=== PATIENT | male | born 1960 | race Caucasian/White ===

== ENCOUNTER 2022-12-17 15:28 | Inpatient (IN) | payer BC ==
[~2022-12-17] VITALS: Ht 193 cm; Wt 107.1 kg
[2022-12-17 15:58] LABS: BASOPHILS # (AUTO) 0.03 K/uL (0.00-0.20); BASOPHILS % (AUTO) 0.3 % (0.0-5.0); EOSINOPHILS # (AUTO) 0.06 K/uL (0.00-0.70); EOSINOPHILS % (AUTO) 0.5 % (0.0-8.0); HEMATOCRIT 32.8 % (42-54); IMMATURE GRANULOCYTE ABSOLUTE 0.06 K/uL (0-1); LYMPHOCYTES # (AUTO) 1.9 K/uL (1.0-4.8); LYMPHOCYTES % (AUTO) 15.9 % (21.0-51.0); MEAN CORPUSCULAR HEMOGLOBIN 26.5 pg (27.0-33.0); MEAN CORPUSCULAR HGB CONC 32.9 g/dL (32.0-36.0); MEAN CORPUSCULAR VOLUME 80.4 fL (79-99); MONOCYTES # (AUTO) 1.1 K/uL (0.1-1.0); MONOCYTES % (AUTO) 9.4 % (3.0-13.0); NEUTROPHILS # (AUTO) 8.8 K/uL (1.8-7.7); NEUTROPHILS % (AUTO) 73.4 % (40.0-77.0); PLATELET COUNT (AUTO) 262 K/uL (130-400); RED BLOOD CELL COUNT(AUTO) 4.08 MIL/uL (4.50-6.20); RED CELL DISTRIBUTION WIDTH 18.8 % (11.0-15.5); WHITE BLOOD COUNT (AUTO) 11.9 K/uL (4.8-10.8)
[2022-12-17 16:12] LABS: ALBUMIN 2.8 g/dL (3.5-5.0); CREATININE 0.7 mg/dL (0.5-1.5)
[2022-12-17 16:24] LABS: BILIRUBIN,TOTAL 0.3 mg/dL (0.2-1.0); TOTAL PROTEIN, SERUM 7.6 g/dL (6.0-8.3)
[2022-12-17 16:26] LABS: POTASSIUM 2.5 mmol/L (3.5-5.1)
[2022-12-17] MEDS ORDERED: ONDANSETRON 4MG INJ IVP ONE (16:30)
[2022-12-17] MEDS ORDERED: MORPHINE 4 MG SYG IVP ONE (16:30)
[2022-12-17] MEDS ORDERED: IOHEXOL-350 75 ML VIAL IV ONE (16:45)
[2022-12-17] MEDS ORDERED: LACTATED RINGERS 1000ML 1,000 ML IV ONE (17:00)
[2022-12-17] MEDS ORDERED: POTASSIUM BICARB/CIT AC 25 MEQ TABLET.EFF PO ONE (17:00)
[2022-12-17] MEDS ORDERED: FAMOTIDINE 20MG VIAL IV ONE (17:30)
[2022-12-17] MEDS ORDERED: KETOROLAC 30MG VIAL (30MG/ML) IVP ONE (17:30)
[2022-12-17] MEDS ORDERED: METOCLOPRAMIDE 10 MG/2 ML VIAL IVP ONE (17:30)
[2022-12-17] MEDS ORDERED: ACETAMINOPHEN 325 MG TAB PO PRN ×2 (18:30)
[2022-12-17] MEDS: LACTATED RINGERS 1000ML 1,000 ML IV SCH ×2 (18:51→20:49)
[2022-12-17] MEDS ORDERED: ZOSYN 3.375GM+NS 50ML 50 ML IVPB ONE (19:22)
[2022-12-17] MEDS ORDERED: POTASSIUM CHLORIDE 20MEQ/100ML 100 ML IV PRN (20:30)
[2022-12-17] MEDS ORDERED: MAGNESIUM 2GM PREMIX 50ML 50 ML IV PRN (20:30)
[2022-12-17] MEDS: ZOSYN 3.375GM+NS 50ML 50 ML IVPB SCH (20:49)
[2022-12-17] MEDS: ONDANSETRON 4MG INJ IV PRN (20:51)
[2022-12-17] MEDS: MORPHINE 4 MG SYG IV PRN (20:52)
[2022-12-17 22:08] VITALS: BP 134/82; PULSE 86; RESP 18
[2022-12-17 22:15] VITALS: BP 139/77; PULSE 92; RESP 18
[2022-12-17 22:51] VITALS: O2SAT 98
[2022-12-17] MEDS: MORPHINE 2 MG SYG IV PRN (23:18)
[2022-12-18] VITALS (31 sets, daily range): BP systolic 104–156; BP diastolic 47–89; PULSE 69–105; RESP 11–22; O2SAT 98–99
[2022-12-18] MEDS: MORPHINE 4 MG SYG IV PRN ×2 (01:47→06:19)
[2022-12-18 04:08] LABS: BASOPHILS # (AUTO) 0.04 K/uL (0.00-0.20); BASOPHILS % (AUTO) 0.4 % (0.0-5.0); EOSINOPHILS # (AUTO) 0.12 K/uL (0.00-0.70); EOSINOPHILS % (AUTO) 1.3 % (0.0-8.0); IMMATURE GRANULOCYTE ABSOLUTE 0.05 K/uL (0-1); LYMPHOCYTES # (AUTO) 1.7 K/uL (1.0-4.8); LYMPHOCYTES % (AUTO) 18.5 % (21.0-51.0); MEAN CORPUSCULAR HEMOGLOBIN 26.4 pg (27.0-33.0); MEAN CORPUSCULAR VOLUME 85.2 fL (79-99); MONOCYTES # (AUTO) 1.5 K/uL (0.1-1.0); MONOCYTES % (AUTO) 15.7 % (3.0-13.0); NEUTROPHILS # (AUTO) 5.9 K/uL (1.8-7.7); NEUTROPHILS % (AUTO) 63.6 % (40.0-77.0); PLATELET COUNT (AUTO) 232 K/uL (130-400); RED BLOOD CELL COUNT(AUTO) 3.52 MIL/uL (4.50-6.20); RED CELL DISTRIBUTION WIDTH 18.9 % (11.0-15.5); WHITE BLOOD COUNT (AUTO) 9.3 K/uL (4.8-10.8)
[2022-12-18 04:24] LABS: CREATININE 0.8 mg/dL (0.5-1.5); MAGNESIUM 2.2 mg/dL (1.80-2.40); PHOSPHORUS 3.3 mg/dL (2.5-4.9)
[2022-12-18] MEDS: ZOSYN 3.375GM+NS 50ML 50 ML IVPB SCH ×3 (04:31→21:44)
[2022-12-18] MEDS ORDERED: POTASSIUM CHLORIDE 20 MEQ/100 ML BAG IV SCH (08:00)
[2022-12-18 08:31] LABS: INR 0.94 (0.85-1.15); PROTHROMBIN TIME 10.9 SEC (9.6-11.6)
[2022-12-18] MEDS ORDERED: MORPHINE 2 MG SYG IVP ONE (09:00)
[2022-12-18] MEDS: NICOTINE 14 MG/ 24 HR PATCH TD SCH (09:02)
[2022-12-18] MEDS: FAMOTIDINE 20MG VIAL IV SCH (09:03)
[2022-12-18] MEDS ORDERED: BUPIVACAINE/PF 0.25% 30ML VIAL IJ ONE (10:06)
[2022-12-18] MEDS ORDERED: LIDOCAINE 1%-EPI 1:100,000 20 ML VIAL IJ ONE (10:07)
[2022-12-18] MEDS ORDERED: SUCCINYLCHOLINE CHLORIDE 20 MG/ML 10 ML VIAL ONE (10:20)
[2022-12-18] MEDS ORDERED: LIDOCAINE PF 100MG/5ML (2%) SYRINGE 5ML ONE (10:20)
[2022-12-18] MEDS ORDERED: DEXAMETHASONE SOD PHOSPHATE 10MG/ML 1ML VIAL ONE (10:20)
[2022-12-18] MEDS ORDERED: MIDAZOLAM HCL 1 MG/ML 2ML VIAL ONE ×2 (10:21→11:16)
[2022-12-18] MEDS ORDERED: NEOSTIGMINE 5MG/5ML SYR IV ONE (10:21)
[2022-12-18] MEDS ORDERED: GLYCOPYRROLATE 1 MG/5 ML SYRINGE ONE (10:21)
[2022-12-18] MEDS ORDERED: PROPOFOL 10 MG/ML 20ML VIAL IV ONE (10:21)
[2022-12-18] MEDS ORDERED: ROCURONIUM 10MG/1ML SYR 10 MG/ML ML ONE (10:21)
[2022-12-18] MEDS ORDERED: ONDANSETRON 4MG INJ ONE ×2 (10:21→12:03)
[2022-12-18] MEDS ORDERED: FENTANYL CITRATE PF 50 MCG/1 ML 2ML VIAL ONE (10:22)
[2022-12-18] MEDS ORDERED: FENTANYL CITRATE PF 50 MCG/1 ML 5ML AMP IV ONE (10:22)
[2022-12-18] MEDS ORDERED: CEFAZOLIN SODIUM 1 GM VIAL ONE (10:49)
[2022-12-18] MEDS ORDERED: MEPERIDINE-PF 25 MG/ML SYG ONE (11:21)
[2022-12-18] MEDS: LACTATED RINGERS 1000ML 1,000 ML IV SCH (11:23)
[2022-12-18] MEDS ORDERED: MEPERIDINE-PF 50 MG/ML SYG ONE (12:03)
[2022-12-18] MEDS ORDERED: ZOSYN 3.375GM+NS 50ML 50 ML IVPB ONE (12:45)
[2022-12-18] MEDS: MORPHINE 2 MG SYG IV PRN (14:19)
[2022-12-18] MEDS: HYDROMORPHONE 1 MG INJ IVP PRN ×2 (16:37→21:45)
[2022-12-18] MEDS: OXYCODONE/ACETAMIN 5/325MG TAB PO PRN ×2 (17:51→21:58)
[2022-12-19] VITALS (7 sets, daily range): BP systolic 102–129; BP diastolic 62–72; PULSE 89–103; RESP 18–20; O2SAT 98
[2022-12-19] MEDS: OXYCODONE/ACETAMIN 5/325MG TAB PO PRN ×3 (03:29→19:56)
[2022-12-19] MEDS: HYDROMORPHONE 1 MG INJ IVP PRN ×5 (03:30→22:33)
[2022-12-19 04:28] LABS: HEMATOCRIT 28.2 % (42-54); MEAN CORPUSCULAR HEMOGLOBIN 26.2 pg (27.0-33.0); MEAN CORPUSCULAR HGB CONC 30.5 g/dL (32.0-36.0); RED BLOOD CELL COUNT(AUTO) 3.28 MIL/uL (4.50-6.20); RED CELL DISTRIBUTION WIDTH 18.8 % (11.0-15.5); WHITE BLOOD COUNT (AUTO) 12.9 K/uL (4.8-10.8)
[2022-12-19 04:32] LABS: HEMOGLOBIN A1C 5.8 % (4.0-6.0)
[2022-12-19 04:52] LABS: ALBUMIN 2.6 g/dL (3.5-5.0); BILIRUBIN,TOTAL 0.5 mg/dL (0.2-1.0); CREATININE 0.9 mg/dL (0.5-1.5); MAGNESIUM 1.8 mg/dL (1.80-2.40); POTASSIUM 3.5 mmol/L (3.5-5.1); TOTAL PROTEIN, SERUM 6.6 g/dL (6.0-8.3)
[2022-12-19] MEDS: ZOSYN 3.375GM+NS 50ML 50 ML IVPB SCH ×3 (05:17→21:32)
[2022-12-19] MEDS: LACTATED RINGERS 1000ML 1,000 ML IV SCH (05:18)
[2022-12-19] MEDS: FAMOTIDINE 20MG VIAL IV SCH (08:38)
[2022-12-19] MEDS: NICOTINE 14 MG/ 24 HR PATCH TD SCH (08:40)
[2022-12-19] MEDS ORDERED: LISI2.5T13 PO (09:57)
[2022-12-19] MEDS ORDERED: APIX5TAB PO (09:57)
[2022-12-19] MEDS ORDERED: CARV12.511 PO (09:57)
[2022-12-19] MEDS ORDERED: PANT40TA54 PO (09:57)
[2022-12-19] MEDS ORDERED: FURO20TA4 PO (09:57)
[2022-12-19] MEDS ORDERED: GABA-529 PO (09:57)
[2022-12-19] MEDS ORDERED: ATOR40TA71 PO (09:57)
[2022-12-19] MEDS ORDERED: LEVE250T2 PO (09:57)
[2022-12-19] MEDS ORDERED: KCL 20 MEQ ERTAB PO ONE ×2 (11:30→16:30)
[2022-12-19] MEDS: FUROSEMIDE 20 MG TABLET PO SCH (12:49)
[2022-12-19] MEDS: ONDANSETRON 4MG INJ IV PRN (13:58)
[2022-12-19] MEDS ORDERED: LACTATED RINGERS 1000ML 1,000 ML IV SCH (19:00)
[2022-12-19] MEDS ORDERED: LACTULOSE 20 GM/30 ML UDCUP PO ONE (20:00)
[2022-12-19] MEDS ORDERED: LEVETIRACETAM 250 MG TABLET PO SCH (21:00)
[2022-12-19] MEDS ORDERED: TAMSULOSIN HCL 0.4 MG CAP.ER.24H PO SCH (21:00)
[2022-12-19] MEDS: PANTOPRAZOLE 40 MG TAB DR PO SCH (21:31)
[2022-12-19] MEDS: CARVEDILOL 12.5 MG TABLET PO SCH (21:32)
[2022-12-19] MEDS: GABAPENTIN 100 MG CAPSULE PO SCH (21:38)
[2022-12-20 00:31] VITALS: BP 106/72; PULSE 89; RESP 16
[2022-12-20 03:06] VITALS: BP 114/65; PULSE 80; RESP 16
[2022-12-20] MEDS ORDERED: LACTULOSE 20 GM/30 ML UDCUP ONE (03:09)
[2022-12-20] MEDS: HYDROMORPHONE 1 MG INJ IVP PRN (03:11)
[2022-12-20] MEDS ORDERED: KETOROLAC 30MG VIAL (30MG/ML) IVP PRN (03:30)
[2022-12-20] MEDS ORDERED: LACTULOSE 20 GM/30 ML UDCUP PO ONE (03:30)
[2022-12-20] MEDS: OXYCODONE/ACETAMIN 5/325MG TAB PO PRN ×2 (03:35→10:20)
[2022-12-20 04:27] LABS: HEMATOCRIT 28.6 % (42-54); MEAN CORPUSCULAR HEMOGLOBIN 26.2 pg (27.0-33.0); MEAN CORPUSCULAR HGB CONC 30.4 g/dL (32.0-36.0); MEAN CORPUSCULAR VOLUME 86.1 fL (79-99); RED BLOOD CELL COUNT(AUTO) 3.32 MIL/uL (4.50-6.20); RED CELL DISTRIBUTION WIDTH 18.9 % (11.0-15.5); WHITE BLOOD COUNT (AUTO) 14.9 K/uL (4.8-10.8)
[2022-12-20 04:42] LABS: ALBUMIN 2.7 g/dL (3.5-5.0); BILIRUBIN,TOTAL 0.4 mg/dL (0.2-1.0); CREATININE 0.9 mg/dL (0.5-1.5); MAGNESIUM 1.9 mg/dL (1.80-2.40); POTASSIUM 4.2 mmol/L (3.5-5.1); TOTAL PROTEIN, SERUM 7.1 g/dL (6.0-8.3)
[2022-12-20] MEDS: ZOSYN 3.375GM+NS 50ML 50 ML IVPB SCH (04:59)
[2022-12-20 07:37] VITALS: BP 122/67; PULSE 86; RESP 20
[2022-12-20 08:00] VITALS: O2SAT 99
[2022-12-20] MEDS ORDERED: LISINOPRIL 2.5 MG TABLET PO SCH (09:00)
[2022-12-20] MEDS ORDERED: FUROSEMIDE 20 MG TABLET PO SCH (09:00)
[2022-12-20] MEDS ORDERED: ATORVASTATIN 40 MG TABLET PO SCH (09:00)
[2022-12-20] MEDS: NICOTINE 14 MG/ 24 HR PATCH TD SCH (10:17)
[2022-12-20 10:23] VITALS: BP 122/67
[2022-12-20] MEDS: PANTOPRAZOLE 40 MG TAB DR PO SCH (10:23)
[2022-12-20] MEDS: CARVEDILOL 12.5 MG TABLET PO SCH (10:23)
[2022-12-20] MEDS: GABAPENTIN 100 MG CAPSULE PO SCH (10:24)
[2022-12-20] MEDS: FUROSEMIDE 20 MG TABLET PO SCH (10:24)
== END 2022-12-20 11:45 | disposition home or self-care (01) | DRG 343 ==
LOC: EDH 15:28 → EDHIP 18:22 → 2DH 21:14
PROVIDERS: ADMIT Internal Medicine; ATTEND Internal Medicine
PROC: 0DTJ4ZZ Resection of Appendix, Percutaneous Endoscopic Approach (ICD-10-PCS; principal; 2022-12-18 10:29)
DX: K35.890 Other acute appendicitis without perforation or gangrene (principal); F10.129 Alcohol abuse with intoxication, unspecified; I48.91 Unspecified atrial fibrillation; R73.9 Hyperglycemia, unspecified; E87.6 Hypokalemia; F17.200 Nicotine dependence, unspecified, uncomplicated; I10 Essential (primary) hypertension; Z95.2 Presence of prosthetic heart valve; Z90.49 Acquired absence of other specified parts of digestive tract; Z79.899 Other long term (current) drug therapy
CPT/HCPCS: 36415; 71045; 74178; 80048; 80053; 82550; 82948; 83036; 83690; 83735; 83874; 84100; 84132; 84484; 85025; 85027; 85610; 87040; 93005; G0378; J0330; J0690; J1100; J1170; J1885; J2001; J2175; J2250; J2270; J2405; J2543; J2704; J2710; J2765; J3010; J3475; J3480; J3490; J7120; Q9967; A4216; A4222; A4223; A4600